=== PATIENT | female | born 1980 | race American Indian/Alaskan Native ===

== ENCOUNTER 2017-10-25 20:37 | Emergency (ER) | payer OTHER ==
[2017-10-25] MEDS ORDERED: TYLENOL PO ONE (21:11)
[2017-10-26] MEDS ORDERED: MOTRIN PO ONE (01:32)
--- NOTE | 2017-10-26 01:32 | Emergency Department Report ---
HPI - General Chief Complaint: Upper Respiratory Infection Time Seen by Provider: 10/26/17 01:31 - HPI HPI: Patient reports flu like symptoms that started today with body ache often. Denies any chest pain or shortness of breath generalized tenderness throughout the 10 aching all over. Report fever and chills. No medication taken. No nausea or vomiting. Patient is diabetic and her blood sugars 272. She has a history of diabetes and migraine headache. She reported chest soreness from coughing. Denies any abdominal or back pain. Denies any urinary frequency urgency or burning. Denies any sore throat or difficulty swallowing. ED Past Medical Hx - Past Medical History Previous Medical History?: Yes Hx Diabetes: Yes Hx Headaches / Migraines: Yes - Surgical History Past Surgical History?: Yes Additional Surgical History: Had a C section x2 - Family History Family history: no significant - Social History Smoking Status: Current Every Day Smoker Substance Use Type: None - Medications Home Medications: Home Medications Medication Instructions Recorded Confirmed Last Taken Type Acetaminophen [Tylenol] 500 mg PO Q6HR PRN #16 tablet 10/26/17 Unknown Rx Cetirizine HCl [ZyrTEC] 10 mg PO QDAY #10 capsule 10/26/17 Unknown Rx Oseltamivir [Tamiflu] 75 mg PO BID 5 Days #10 cap 10/26/17 Unknown Rx guaiFENesin/CODEINE [Robitussin AC] 10 ml PO Q12H PRN #100 oral.liqd 10/26/17 Unknown Rx ED Review of Systems ROS: Stated complaint: FLU SYMPTOMS Other details as noted in HPI Comment: All other systems reviewed and negative Constitutional: chills, fever, malaise. denies: weakness Eyes: denies: eye pain, eye discharge ENT: congestion. denies: ear pain, throat pain Respiratory: cough. denies: orthopnea, shortness of breath, SOB with exertion, SOB at rest, stridor, wheezing Cardiovascular: denies: chest pain, palpitations, dyspnea on exertion, orthopnea , edema, syncope Gastrointestinal: denies: abdominal pain, nausea, vomiting, diarrhea, constipation, hematemesis, melena, hematochezia Genitourinary: denies: dysuria, hematuria, abnormal menses Musculoskeletal: myalgia. denies: back pain, joint swelling, arthralgia Skin: denies: rash Neurological: denies: headache, abnormal gait, vertigo Physical Exam - Physical Exam Vital Signs: Vital Signs 10/25/17 20:52 Temperature 102.1 F H Pulse Rate 109 H Respiratory 20 Rate Blood Pressure 164/93 O2 Sat by Pulse 98 Oximetry General: This is a 37-year-old female that appears to be ill but nontoxic in appearance. Physical Exam: Head: Normocephalic, atraumatic, no abrasion, no bruising and no contusion. Eyes: Biateral pupils equal and reactive to light, bilateral EOM intact.. Bilateral conjunctival and sclera without injection, normal accommodation. No nystagmus Mouth: Moist, no pharyngeal exudate or erythema. No peritonsillar abscesses. Uvula is midline and oral airways patent. Ears: Bilateral TM congested without erythema. Bilateral EAC without any redness swelling or drainage. No mastoid bone tenderness Nose: Bilateral nasal turbinates congested with erythema and clear drainage. Maxillary and frontal sinuses non- tender to palpate. Neck: Supple, No Cervical adenopathy, full range of motion and no C-spine tenderness. No swelling or tracheal deviation normal reflexes Cardiovascular: S1, S2. Tachycardic at 109, Regular rhythm. No murmur. Capillary refill is less then 3 seconds. Lungs: Scattered wheeze into the upper lung merida, no rhonchi or rales. No use of accessory muscle No chest wall tenderness. No chest contusion. No bruising to chest. Dry cough MSK: Strength 5/5 in all extremities. No joint deformity or crepitus. Normal inspection. Full range of motion to all extremities. No laceration, abrasion or ecchymotic area noted. Abdomen: Non-tender to palpate in all quadrants, no guarding or rebound tenderness, positive bowel sounds in all quadrants. No CVA tenderness. No hernia, bruit or mass. No rigidity or distention. Extremities: No clubbing, cyanosis or edema. +2 pulses. No neurovascular compromise Skin: Clean, dry and intact. No rash or lesions. Neurological: GCS at 15, Pt is alert and oriented 3 speech is clear period. Bilateral hand horse doctor strong and equal. Normal gait. Negative Romberg and no pronator drift. Normal Reflexes. No motor or sensory deficit Back: No vertebral tenderness, no paraspinal tenderness. TAmbulates without any difficulties. Psych: Normal mood and behavior ED Course Vital Signs 10/25/17 20:52 Temperature 102.1 F H Pulse Rate 109 H Respiratory 20 Rate Blood Pressure 164/93 O2 Sat by Pulse 98 Oximetry Vital Signs 10/25/17 10/26/17 20:52 04:37 Temperature 102.1 F H 98.3 F Pulse Rate 109 H 89 Respiratory 20 18 Rate Blood Pressure 164/93 Blood Pressure 125/72 [Right] O2 Sat by Pulse 98 99 Oximetry - Reevaluation(s) Reevaluation #1: 10/26/17 04:25 Patient received Tylenol 650 mg in triage and was still requesting an indication for pain and receive ibuprofen 600 mg by mouth with positive relief of pain. Patient able to tolerate oral liquids. She drank at least 1 L of fluid to include water and juice during the ED stay. Influenza A positive B is negative 10/26/17 08:11 ED Medical Decision Making - Lab Data Influenza A positive Influenza B-negative - Radiology Data Radiology results: report reviewed Chest x-ray reveals no acute cardiopulmonary findings - Medical Decision Making ED course: Here with flulike symptoms and findings have influenza A. Negative influenza B chest x-ray negative for acute cardiopulmonary findings. Patient was given Tylenol 650 mg by mouth followed by ibuprofen 600 mg for body aches, fever. She was able to tolerate oral fluids to the emergency room and drank 4 cups of orange juice without any nausea or vomiting. I discussed patient her results and discuss treatment plan and need to follow up and she voiced understanding. Patient has primary care physician at [place]. I discussed with her to call and schedule an appointment for follow-up visit in 2 days or to return to the emergency room if she is not feeling better. Patient discharged home a prescription for Motrin, Tamiflu, Zyrtec and guaifenesin with codeine Critical care attestation.: If time is entered above; I have spent that time in minutes in the direct care of this critically ill patient, excluding procedure time. ED Disposition Clinical Impression: Influenza A, Upper respiratory infection with cough and congestion, Fever in adult, Body aches Disposition: -01 TO HOME OR SELFCARE Is pt being admited?: No Does the pt Need Aspirin: No Condition: Stable Instructions: Fever in Adults (ED), Influenza (ED), Musculoskeletal Pain (ED), Acute Cough (ED) Additional Instructions: Please increase her fluid intake to 2-3 L of water daily. Vitamin C and this will help with immune system bolus then Follow-up with primary care physician in 2 days and if he do not have a primary care physician at [place] in 2 days call later on this morning to schedule an appointment If you symptoms worsen, return to the emergency room Take Tamiflu as you are positive for influenza A Rest for 72 hours Prescriptions: Acetaminophen [Tylenol] 500 mg PO Q6HR PRN #16 tablet PRN Reason: FEVER/PAIN Cetirizine HCl [ZyrTEC] 10 mg PO QDAY #10 capsule guaiFENesin/CODEINE [Robitussin AC] 10 ml PO Q12H PRN #100 oral.liqd PRN Reason: Cough Oseltamivir [Tamiflu] 75 mg PO BID 5 Days #10 cap Referrals: PRIMARY CARE, [Primary Care Provider] - 3-5 Days [facility] [Provider Group] - 10/28/[address] [facility] [Outside] - 10/28/17 Forms: Accompanied Note, Work/School Release Form(ED)
--- NOTE | 2017-10-26 02:23 | XRay Report ---
FINAL REPORT EXAM: XR CHEST ROUTINE 2V HISTORY: fever.cough TECHNIQUE: PA and lateral views of the chest were submitted. FINDINGS: The lungs are clear. The heart size is normal. Pleural fluid is not seen. The bones and soft tissues are well maintained. IMPRESSION: Within normal limits.
[2017-10-26 04:38] VITALS: BP 125/72
== END 2017-10-26 04:35 | disposition home or self-care (01) ==
LOC: ED 20:37
DX: J09.X2 Influenza due to identified novel influenza A virus with other respiratory manifestations (principal); J06.9 Acute upper respiratory infection, unspecified; G43.909 Migraine, unspecified, not intractable, without status migrainosus; F17.200 Nicotine dependence, unspecified, uncomplicated; E11.9 Type 2 diabetes mellitus without complications
CPT/HCPCS: 71046; 82962; 87400; 99284